=== PATIENT | female | born 1975 | race Hispanic/Latino ===

== ENCOUNTER 2017-09-20 14:23 | Emergency (ER) | payer BC, OTHER ==
--- OUTSIDE RECORDS SUMMARY | 2017-09-20 14:24 | XMS REPORT | Clinical Summary ---
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 Social History Tobacco Use Types Packs/Day Years Used Date Never Assessed Sex Assigned at Date Recorded Not on file Last Filed Vital Signs Not on file Plan of Treatment Not on file Results EEG AWAKE/ASLEEP AND SLEEP (08/06/2017 2:08 PM) Specimen Performing Laboratory GE RIS Narrative Date(s) of EE08/06/2017 DATE OF REPORT: 08/06/2017 ACC: [id number] EEG Number: [id number] Test Location: Outpatient EEG Lab Start time: 13:47 Stop time: 14:17 ICD-10: R 56.9 CPT Code: 22192 MEDICATIONS THAT COULD AFFECT EEG: None in chart TECHNICAL SUMMARY: This is a digital video-EEG recorded with 32 input channels reviewed with bipolar and referential montages using the modified combinatorial system nomenclature. DESCRIPTION OF RECORD: During the maximally alert state a 9 Hz posterior dominant rhythm was seen that was symmetric, reactive to eye opening and well regulated. More anteriorly, low voltage frontocentral beta predominated. Drowsiness was characterized by alpha attenuation and increased frontocentral theta and beta.Stage 2 sleep was reached characterized by symmetric sleep spindles. SIGNIFICANT VIDEO EVENTS: None SIGNIFICANT ELECTROCARDIOGRAM EVENTS: None HV: Hyperventilation was performed for 3 minutes with good effort. No change was seen with HV. PHOTIC STIMULATION: Photic stimulation was done from 3-18 Hz; no photic driving was seen; photoparoxysmal responses were absent. IMPRESSION: Normal Awake and Sleep EEG CLINICAL CORRELATION: An EEG without epileptiform discharges does not exclude the possibility of epilepsy. Ruslan Dickerson MD Neurophysiology Fellow, PGY5 Sharee Ortiz MD Attending Neurophysiologist [facility] Procedure Note Interface, External Ris In - 08/06/2017 3:37 PM CDT Date(s) of EE08/06/2017 DATE OF REPORT: 08/06/2017 ACC: [id number] EEG Number: [id number] Test Location: Outpatient EEG Lab Start time: 13:47 Stop time: 14:17 ICD-10: R 56.9 CPT Code: 26077 MEDICATIONS THAT COULD AFFECT EEG: None in chart TECHNICAL SUMMARY: This is a digital video-EEG recorded with 32 input channels reviewed with bipolar and referential montages using the modified combinatorial system nomenclature. DESCRIPTION OF RECORD: During the maximally alert state a 9 Hz posterior dominant rhythm was seen that was symmetric, reactive to eye opening and well regulated. More anteriorly, low voltage frontocentral beta predominated. Drowsiness was characterized by alpha attenuation and increased frontocentral theta and beta. Stage 2 sleep was reached characterized by symmetric sleep spindles. SIGNIFICANT VIDEO EVENTS: None SIGNIFICANT ELECTROCARDIOGRAM EVENTS: None HV: Hyperventilation was performed for 3 minutes with good effort. No change was seen with HV. PHOTIC STIMULATION: Photic stimulation was done from 3-18 Hz; no photic driving was seen; photoparoxysmal responses were absent. IMPRESSION: Normal Awake and Sleep EEG CLINICAL CORRELATION: An EEG without epileptiform discharges does not exclude the possibility of epilepsy. Ruslan Dickerson MD Neurophysiology Fellow, PGY5 Sharee Ortiz MD Attending Neurophysiologist [facility] after 09/19/2016
--- OUTSIDE RECORDS SUMMARY | 2017-09-20 14:24 | XMS REPORT | Summary of Care ---
:1975 Author Organization [facility] Address [address], [place] [address]- Encounter [facility] Encntr_alias(FIN) [id number] Date(s): 06/28/16 - 06/28/[address] [address]- Discharge Disposition: Home or Self Care Attending Physician: Pamela Bishop MD Admitting Physician: Pamela Bishop MD Vital Signs No data available for this section Problem List No data available for this section Allergies, Adverse Reactions, Alerts No data available for this section Medications No data available for this section Results No data available for this section Immunizations No data available for this section Procedures No data available for this section Social History No data available for this section Assessment and Plan No data available for this section
--- OUTSIDE RECORDS SUMMARY | 2017-09-20 14:25 | XMS REPORT | Summary of Care ---
:1975 Author Organization [facility] Address [address] [place] [address]- Encounter [facility]orn[facility]_bobby(FIN) [id number] Date(s): 06/22/17 - 06/23/17 [facility] [address] [place] [address]- [phone] Discharge Disposition: Psychiatric Facility Attending Physician: Zoey Pineda MD Admitting Physician: Zoey Pineda MD Vital Signs Most recent to oldest [Reference 1 2 3 Range]: Height 180.34 cm 180.34 cm (06/22/17 8:03 PM) (06/22/17 1:00 PM) Temperature Oral [96.4-99.1 DegF] 98.7 DegF 98.9 DegF 97.7 DegF (06/23/17 2:38 PM) (06/23/17 7:49 AM) (06/23/17 1:21 AM) Blood Pressure [90-140/60-90 mmHg] 161/95 mmHg 136/89 mmHg 127/81 mmHg *HI* (06/23/17 7:49 AM) (06/23/17 4:20 AM) (06/23/17 2:38 PM) Respiratory Rate [14-20 BRMIN] 16 BRMIN 18 BRMIN 16 BRMIN (06/23/17 2:38 PM) (06/23/17 7:49 AM) (06/23/17 1:30 AM) Peripheral Pulse Rate [60-100 bpm] 94 bpm 104 bpm 89 bpm (06/23/17 2:38 PM) *HI* (06/23/17 4:20 AM) (06/23/17 7:49 AM) Weight 71.534 kg 77.273 kg (06/22/17 8:03 PM) (06/22/17 1:00 PM) Body Mass Index 22 m2 23.76 m2 (06/22/17 8:03 PM) (06/22/17 1:00 PM) Problem List No data available for this section Allergies, Adverse Reactions, Alerts Substance Reaction Severity Status doxycycline Active Zofran Active Demerol HCl Active Morphine Sulfate ER Active Medications acetaminophen (ANES) 10 mg Route: IV, Drug form: INJ, Start date: 06/22/17 23:35:00 CDT, Stop date: 0:35:00 CDT Start Date: 06/22/17 Stop Date: 06/23/17 Status: CompletedANES diphenhydrAMINE 6.25 mg, Route: IVP, Drug form: INJ, ONCE, Dosing Weight 71.534, kg, PRN Itching , Start date: 06/23/17 0:51:00 CDT Start Date: 06/23/17 Stop Date: 06/23/17 Status: CompletedANES ePHEDrine 5 mg, 1 mL, Route: IVP, Drug form: INJ, Q5Min, Dosing Weight 71.534, kg, PRN Low Blood Pressure, Start date: 06/22/17 23:40:00 CDT, Duration: 30 day, Stop date: 07/22/17 23:39:00 CDT Start Date: 06/22/17 Stop Date: 06/23/17 Status: DiscontinuedANES flumazenil 0.2 mg, 2 mL, Route: IVP, Drug form: INJ, PRN, Dosing Weight 71.534, kg, PRN Benzodiazepine Reversal, Initial dose, Start date: 06/22/17 23:40:00 CDT, Duration: 30 day, Stop date: 07/22/17 23:39:00 CDT Notes: (Same as: Romazicon) Start Date: 06/22/17 Stop Date: 06/23/17 Status: DiscontinuedANES hydrALAZINE 10 mg, 0.5 mL, Route: IVP, Drug form: INJ, Q20Min, Dosing Weight 71.534, kg, PRN Elevated BP, Start date: 06/22/17 23:40:00 CDT, Duration: 2 doses or times, Stop date: Limited # of times Notes: (Same as: Apresoline)Push over 5 minutes Start Date: 06/22/17 Stop Date: 06/23/17 Status: DiscontinuedANES HYDROmorphone 0.5 mg, 0.5 mL, Route: IVP, Drug form: INJ, Q5Min, Dosing Weight 71.534, kg, PRN Pain Score 7-10, Start date: 06/22/17 23:40:00 CDT, Duration: 4 doses or times, Stop date: Limited # of times Notes: Same as: Dilaudid Start Date: 06/22/17 Stop Date: 06/23/17 Status: DiscontinuedANES LORazepam 0.5 mg, 0.25 mL, Route: IVP, Drug form: INJ, Q20Min, Dosing Weight 71.534, kg, PRN Anxiety, Start date: 06/22/17 23:40:00 CDT, Duration: 3 doses or times, Stop date: Limited # of times Notes: (Same as: Ativan) Start Date: 06/22/17 Stop Date: 06/23/17 Status: DiscontinuedANES metoprolol 1 mg, 1 mL, Route: IVP, Drug form: INJ, Q5Min, Dosing Weight 71.534, kg, PRN Other -See Comment, Start date: 06/22/17 23:40:00 CDT, Duration: 5 doses or times, Stop date: Limited # of times Notes: (Same as: Lopressor)Push over 2 minutes Start Date: 06/22/17 Stop Date: 06/23/17 Status: DiscontinuedANES midazolam 1 mg, 1 mL, Route: IVP, Drug form: INJ, Q5Min, Dosing Weight 71.534, kg, PRN Anxiety, Start date: 06/22/17 23:40:00 CDT, Duration: 2 doses or times, Stop date: Limited # of times Notes: (Same as: Versed) MEDICATION WASTE Product Size: 2 mgProduct Wasted: ___ mg Start Date: 06/22/17 Stop Date: 06/23/17 Status: DiscontinuedANES naloxone 0.4 mg, 1 mL, Route: IVP, Drug form: INJ, Q2MIN, Dosing Weight 71.534, kg, PRN Narcotic Reversal, Start date: 06/22/17 23:40:00 CDT, Duration: 8 doses or times , Stop date: Limited # of times Notes: Same as Narcan Start Date: 06/22/17 Stop Date: 06/23/17 Status: DiscontinuedANES promethazine + Sodium Chloride 0.9% IV 50 mL 6.25 mg, 0.25 mL, Route: IVPB, ONCE, Dosing Weight 71.534, kg, PRN Nausea & Vomiting, Start date: 06/22/17 23:40:00 CDT Notes: Do not give IV push. (Same as: Phenergan) Start Date: 06/22/17 Stop Date: 06/23/17 Status: DiscontinuedAtivan 1 mg, 0.5 mL, Route: IVP, Drug form: INJ, Q4H, Dosing Weight 71.534, kg, PRN Anxiety, Start date: 06/22/17 22:23:00 CDT, Duration: 30 day, Stop date: 22:22:00 CDT Notes: (Same as: Ativan) Start Date: 06/22/17 Stop Date: 06/23/17 Status: Discontinuedbaclofen 20 mg, PO, QID, 0 Refill(s) Start Date: 06/22/17 Status: Orderedbaclofen 20 mg, 2 tab, Route: PO, Drug form: TAB, QID, Dosing Weight 71.534, kg, Start date: 06/23/17 9:00:00CDT, Duration: 30 day, Stop date: 07/22/17 21:00:00 CDT Notes: (Same As: Lioresal) Start Date: 06/23/17 Stop Date: 06/23/17 Status: DiscontinuedBD Normal Saline Flush 25 mL, Route: IV, Drug Form: INJ, PRN, PRN Line Flush, Start date: 06/22/17 22: 38:00 CDT, Duration: 30 day, Stop date: 07/22/17 22:37:00 CDT Notes: (Same as: BD Posiflush) Start Date: 06/22/17 Stop Date: 06/23/17 Status: DiscontinuedceFAZolin (ANES) Route: IV, Drug form: INJ, ONCE, Stop date: 06/23/17 0:07:00 CDT Start Date: 06/23/17 Stop Date: 06/23/17 Status: Completedcetirizine 10 mg, 1 tab, Route: PO, Drug form: TAB, Daily, PRN Congestion, Start date: 09/03 11:28:00 CDT, Duration: 30 day, Stop date: 07/23/17 11:27:00 CDT Notes: (Same As: Zyrtec) Start Date: 06/23/17 Stop Date: 06/23/17 Status: Discontinuedcetirizine 10 mg oral tablet 10 mg=1 tab, PO, Daily, PRN Congestion, 0 Refill(s) Start Date: 06/23/17 Status: Orderedciprofloxacin 500 mg, 1 tab, Route: PO, Drug form: TAB, Q12H, Dosing Weight 71.534, kg, Priority: NOW, Start date:06/23/17 10:39:00 CDT, Duration: 30 day, Stop date: 9:00:00 CDT, ABX Indication: Intra-abdominal Infection Notes: May interfere w/enteral feedings - Take 1 hr before or 2 hrs after antacids, dairy pdt & minerals. On empty stomach. Start Date: 06/23/17 Stop Date: 06/23/17 Status: Discontinuedciprofloxacin 500 mg oral tablet 500 mg=1 tab, PO, Q12H, X 7 day, # 14 tab, 0 Refill(s) Start Date: 06/23/17 Stop Date: 06/30/17 Status: Orderedciprofloxacin 500 mg oral tablet 500 mg=1 tab, PO, Q12H, X 7 day, # 14 tab, 0 Refill(s) Start Date: 06/22/17 Stop Date: 06/23/17 Status: DiscontinuedClaritin-D 24 Hour oral tablet, extended release 1 tab, Route: PO, Drug Form: ERTAB, Dosing Weight 71.534, kg, Daily, PRN Congestion, NOW, Start date: 06/23/17 10:40:00 CDT, Duration: 30 day, Stop date : 07/23/17 10:39:00 CDT Start Date: 06/23/17 Stop Date: 06/23/17 Status: DeletedclonazePAM 1 mg, PO, TID, 0 Refill(s) Start Date: 06/22/17 Status: OrderedclonazePAM 1 mg, 2 tab, Route: PO, Drug form: TAB, TID, Dosing Weight 71.534, kg, Start date: 06/23/17 9:00:00 CDT, Duration: 30 day, Stop date: 07/23/17 8:00:00 CDT Notes: (Same As: KlonoPIN) Start Date: 06/23/17 Stop Date: 06/23/17 Status: Discontinueddexamethasone (ANES) Route: IV, Drug form: INJ, ONCE, Stop date: 06/23/17 0:12:00 CDT Start Date: 06/23/17 Stop Date: 06/23/17 Status: CompletedDilaudid 1 mg, 1 mL, Route: IVP, Drug form: INJ, Q4H, Dosing Weight 77.273, kg, PRN Pain Score 7-10, Start date: 06/22/17 18:32:00 CDT, Stop date: 07/22/17 18:31:00 CDT Notes: Same as: Dilaudid Start Date: 06/22/17 Stop Date: 06/23/17 Status: DiscontinuedDilaudid 4 mg, 1 tab, Route: PO, Drug form: TAB, Q4H, Dosing Weight 71.534, kg, PRN Pain Score 7-10, Start date: 06/23/17 12:38:00 CDT, Duration: 30 day, Stop date: 08/04 12:37:00 CDT Notes: (Same as: Dilaudid) Start Date: 06/23/17 Stop Date: 06/23/17 Status: DiscontinuedfentaNYL (ANES) Route: IV, Drug form: INJ, ONCE, Stop date: 06/23/17 0:07:00 CDT Start Date: 06/23/17 Stop Date: 06/23/17 Status: CompletedGI cocktail 30 mL, Route: PO, Drug Form: SUSP, Dosing Weight 77.273, kg, ONCE, STAT, Start date: 06/22/17 14:29:00 CDT, Stop date: 06/22/17 14:29:00 CDT Notes: G.I. Cocktail=antacid with simethicone 22.5 mL - lidocaine viscous 7.5 mL Start Date: 06/22/17 Stop Date: 06/22/17 Status: Completedglycopyrrolate (ANES) Route: IV, Drug form: INJ, ONCE, Stop date: 06/23/17 0:43:00 CDT Start Date: 06/23/17 Stop Date: 06/23/17 Status: Completedhydromorphone 0.5 mg, 0.25 mL, Route: IVP, Drug form: INJ, ONCE, Dosing Weight 77.273, kg, Priority: STAT, Start date: 06/22/17 14:13:00 CDT, Stop date: 06/22/17 14:13:00 CDT Notes: Same as Dilaudid Start Date: 06/22/17 Stop Date: 06/22/17 Status: Completedhydromorphone 0.5 mg, 0.25 mL, Route: IVP, Drug form: INJ, ONCE, Dosing Weight 77.273, kg, Priority: STAT, Start date: 06/22/17 17:23:00 CDT, Stop date: 06/22/17 17:23:00 CDT Notes: Same as Dilaudid Start Date: 06/22/17 Stop Date: 06/22/17 Status: Completedhydromorphone (ANES) Route: IV, Drug form: INJ, ONCE, Stop date: 06/23/17 0:07:00 CDT Start Date: 06/23/17 Stop Date: 06/23/17 Status: CompletedhydrOXYzine 25 mg, 1 tab, Route: PO, Drug form: TAB, QID, Dosing Weight 71.534, kg, Start date: 06/23/17 9:00:00CDT, Duration: 30 day, Stop date: 07/22/17 21:00:00 CDT Notes: (Same as: Atarax) Avoid alcohol. Start Date: 06/23/17 Stop Date: 06/23/17 Status: DiscontinuedhydrOXYzine 25 mg, PO, QID, 0 Refill(s) Start Date: 06/22/17 Status: Orderedibuprofen 800 mg, PO, TID, 0 Refill(s) Start Date: 06/22/17 Stop Date: 06/23/17 Status: DiscontinuedImitrex 10 mg, Route: NASAL, Drug form: SPRY, Q2H, Dosing Weight 71.534, kg, PRN Headache 4-6, Start date: 06/23/17 11:47:00 CDT, Duration: 30 day, Stop date: 11:46:00 CDT Start Date: 06/23/17 Stop Date: 06/23/17 Status: DiscontinuedketOROLAC (ANES) IV, ONCE Start Date: 06/23/17 Stop Date: 06/23/17 Status: CompletedLactated Ringers Injection IV (ANES) 1000 mL Route: IV, Total Volume: 1,000, Start date: 06/22/17 23:16:00 CDT, Stop date: 0:16:00 CDT Start Date: 06/22/17 Stop Date: 06/23/17 Status: Completedlidocaine (ANES) Route: IV, Drug form: INJ, ONCE, Stop date: 06/23/17 0:07:00 CDT Start Date: 06/23/17 Stop Date: 06/23/17 Status: Completedmagnesium citrate 1.745 g/30 mL oral liquid 300 ml, Route: PO, Drug Form: LIQ, Dosing Weight 71.534, kg, ONCE, Start date: 06/23/17 10:39:00 CDT, Stop date: 06/23/17 10:39:00 CDT Notes: (Same as: Citrate of Magnesia)Concentration: 1.745 gm / 30 mL Start Date: 06/23/17 Stop Date: 06/23/17 Status: Completedmethocarbamol 750 mg, PO, BID, 0 Refill(s) Start Date: 06/22/17 Status: Orderedmethocarbamol 750 mg, Route: PO, BID, Dosing Weight 71.534, kg, Start date: 06/23/17 9:00:00 CDT, Duration: 30 day, Stop date: 07/22/17 17:00:00 CDT Start Date: 06/23/17 Stop Date: 06/23/17 Status: Discontinuedmidazolam (ANES) Route: IV, Drug form: SOLN, ONCE, Stop date: 06/23/17 0:07:00 CDT Start Date: 06/23/17 Stop Date: 06/23/17 Status: CompletedMiraLax 17 gm, 1 pkt, Route: PO, Drug form: PWDR, BID, Dosing Weight 71.534, kg, Priority: NOW, Start date: 06/23/17 10:39:00 CDT, Duration: 30 day, Stop date: 07/23/17 9:00:00 CDT Notes: Dissolve in 8 oz of water or juice.(Same as: Miralax) Start Date: 06/23/17 Stop Date: 06/23/17 Status: Discontinuedneostigmine (ANES) Route: IV, Drug form: INJ, ONCE, Stop date: 06/23/17 0:43:00 CDT Start Date: 06/23/17 Stop Date: 06/23/17 Status: CompletedPhenergan 25 mg, PO, TID, 0 Refill(s) Start Date: 06/22/17 Status: OrderedPhenergan + Sodium Chloride 0.9% IV 50 mL 12.5 mg, 0.5 mL, Route: IVPB, Q4H, Dosing Weight 71.534, kg, PRN Nausea & Vomiting, Start date: 06/22/17 20:58:00 CDT, Duration: 30 day, Stop date: 20:57:00 CDT Notes: Do not give IV push. (Same as: Phenergan) Start Date: 06/22/17 Stop Date: 06/23/17 Status: DiscontinuedPhenergan + Sodium Chloride 0.9% IV 50 mL 25 mg, 1 mL, Route: IVPB, Drug form: INJ, ONCE, kg, Priority: STAT, Start date: 06/22/17 12:59:00 CDT, Stop date: 06/22/17 12:59:00 CDT Notes: Do not give IV push. (Same as: Phenergan) Start Date: 06/22/17 Stop Date: 06/22/17 Status: CompletedPhenergan + Sodium Chloride 0.9% IV 50 mL 12.5 mg, 0.5 mL, Route: IV Central, Q4H, Dosing Weight 71.534, kg, PRN Nausea & amp; Vomiting, Start date: 06/23/17 0:38:00 CDT, Duration: 30 day, Stop date: 0:37:00 CDT Start Date: 06/23/17 Stop Date: 06/23/17 Status: Discontinuedpropofol (ANES) Route: IV, Drug form: INJ, ONCE, Stop date: 06/23/17 0:07:00 CDT Start Date: 06/23/17 Stop Date: 06/23/17 Status: CompletedProtonix 40 mg, Route: IVP, Drug form: INJ, ONCE, Dosing Weight 77.273, kg, Priority: STAT, Start date: 06/22/17 14:47:00 CDT, Stop date: 06/22/17 14:47:00 CDT Notes: For IV push reconstitute with 10 ml 0.9% sodium chloride and push over 2 minutes. (Same as: Protonix) Start Date: 06/22/17 Stop Date: 06/22/17 Status: CompletedReglan 10 mg, Route: IVP, Drug form: INJ, Q6H, Dosing Weight 77.273, kg, PRN Nausea & amp; Vomiting, Start date: 06/22/17 18:32:00 CDT, Duration: 30 day, Stop date: 07/22/17 18:31:00 CDT Start Date: 06/22/17 Stop Date: 06/22/17 Status: Deletedrocuronium (ANES) Route: IV, Drug form: INJ, ONCE, Stop date: 06/23/17 0:07:00 CDT Start Date: 06/23/17 Stop Date: 06/23/17 Status: CompletedSaline Flush 0.9% 10 ml, Route: IVP, Drug Form: INJ, Dosing Weight 77.273, kg, PRN, PRN Line Flush , Start date: 06/22/17 18:30:00 CDT, Duration: 30 day, Stop date: 07/22/17 18:29 :00 CDT Notes: (Same as: BD Posiflush) Start Date: 06/22/17 Stop Date: 06/23/17 Status: DiscontinuedSodium Chloride 0.9% (Bolus) IV 1,000 mL, 1000 ml/hr, Infuse Over: 1 hr, Route: IV, 1,000, Drug form: INJ, ONCE , Priority: STAT, kg,Start date: 06/22/17 12:59:00 CDT, Stop date: 06/22/17 12: 59:00 CDT Start Date: 06/22/17 Stop Date: 06/22/17 Status: CompletedSodium Chloride 0.9% IV 1,000 mL 1,000 mL, Rate: 125 ml/hr, Infuse over: 8 hr, Route: IV, Dosing Weight 77.273 kg , Total Volume: 1,000, Start date: 06/22/17 18:30:00 CDT, Duration: 30 day, Stop date: 07/22/17 18:29:00 CDT, 1.98, m2 Start Date: 06/22/17 Stop Date: 06/23/17 Status: Discontinuedsuccinylcholine (ANES) Route: IV, Drug form: INJ, ONCE, Stop date: 06/23/17 0:07:00 CDT Start Date: 06/23/17 Stop Date: 06/23/17 Status: CompletedSudafed 60 mg, 1 tab, Route: PO, Drug form: TAB, Q6H, PRN Congestion, Start date: 11:30:00 CDT, Duration: 30 day, Stop date: 07/23/17 11:29:00 CDT Notes: (Same as: Mo) Start Date: 06/23/17 Stop Date: 06/23/17 Status: Discontinuedtramadol 50 mg, PO, Q8H Start Date: 06/22/17 Status: OrderedTylenol with Codeine #3 oral tablet 1 tab=, PO, Q4H, PRN Pain Score 4-6, # 40 tab, 0 Refill(s) Start Date: 06/22/17 Stop Date: 06/23/17 Status: DiscontinuedTylenol with Codeine #3 oral tablet 1 tab=, PO, Q4H, PRN Pain Score 4-6, # 40 tab, 0 Refill(s) Start Date: 06/23/17 Status: OrderedTylenol with Codeine #3 oral tablet 1 tab, Route: PO, Drug Form: TAB, Dosing Weight 71.534, kg, Q4H, PRN Pain Score 4-6, Start date: 06/23/17 0:38:00 CDT, Duration: 30 day, Stop date: 07/23/17 0: 37:00 CDT Start Date: 06/23/17 Stop Date: 06/23/17 Status: DiscontinuedZyPREXA 10 mg, 2 tab, Route: PO, Drug form: TAB, Bedtime, Dosing Weight 71.534, kg, Start date: 06/23/17 21:00:00 CDT, Duration: 30 day, Stop date: 07/22/17 21:00: 00 CDT Notes: (Same as: ZyPREXA) Start Date: 06/23/17 Stop Date: 06/23/17 Status: CanceledZyPREXA 10 mg, PO, Bedtime, 0 Refill(s) Start Date: 06/22/17 Status: Ordered Results ELECTROLYTES Most recent to oldest [Reference Range]: 1 2 Sodium Lvl [135-145 mEq/L] 138 mEq/L 140 mEq/L (06/23/17 4:27 AM) (06/22/17 1:20 PM) Potassium Lvl [3.5-5.1 mEq/L] 4.1 mEq/L 4.0 mEq/L (06/23/17 4:27 AM) (06/22/17 1:20 PM) Chloride Lvl [95-109 mEq/L] 105 mEq/L 106 mEq/L (06/23/17 4:27 AM) (06/22/17 1:20 PM) CO2 [24-32 mEq/L] 26 mEq/L 26 mEq/L (06/23/17 4:27 AM) (06/22/17 1:20 PM) AGAP [10.0-20.0 mEq/L] 11.1 mEq/L 12.0 mEq/L (06/23/17 4:27 AM) (06/22/17 1:20 PM) CHEM PANEL Most recent to oldest [Reference Range]: 1 2 Creatinine Lvl [0.50-1.40 mg/dL] 0.96 mg/dL 0.96 mg/dL (06/23/17 4:27 AM) (06/22/17 1:20 PM) eGFR 73 mL/min/1.73m2 1 73 mL/min/1.73m2 2 *NA* *NA* (06/23/17 4:27 AM) (06/22/17 1:20 PM) BUN [7-22 mg/dL] 10 mg/dL 14 mg/dL (06/23/17 4:27 AM) (06/22/17 1:20 PM) B/C Ratio [6-25] 10 15 (06/23/17 4:27 AM) (06/22/17 1:20 PM) Glucose Lvl [70-99 mg/dL] 148 mg/dL 119 mg/dL *HI* *HI* (06/23/17 4:27 AM) (06/22/17 1:20 PM) Total Protein [6.4-8.4 g/dL] 6.4 g/dL 7.2 g/dL (06/23/17 4:27 AM) (06/22/17 1:20 PM) Albumin Lvl [3.5-5.0 g/dL] 3.0 g/dL 3.5 g/dL *LOW* (06/22/17 1:20 PM) (06/23/17 4:27 AM) Globulin [2.7-4.2 g/dL] 3.4 g/dL 3.7 g/dL (06/23/17 4:27 AM) (06/22/17 1:20 PM) A/G Ratio [0.7-1.6] 0.9 0.9 (06/23/17 4:27 AM) (06/22/17 1:20 PM) Calcium Lvl [8.5-10.5 mg/dL] 8.5 mg/dL 8.5 mg/dL (06/23/17 4:27 AM) (06/22/17 1:20 PM) Magnesium Lvl [1.8-2.4 mg/dL] 2.1 mg/dL (06/23/17 4:27 AM) ALT [0-65 unit/L] 279 unit/L 104 unit/L *HI* *HI* (06/23/17 4:27 AM) (06/22/17 1:20 PM) AST [0-37 unit/L] 179 unit/L 104 unit/L *HI* *HI* (06/23/17 4:27 AM) (06/22/17 1:20 PM) Alk Phos [39-136 unit/L] 99 unit/L 80 unit/L (06/23/17 4:27 AM) (06/22/17 1:20 PM) Bili Total [0.2-1.3 mg/dL] 0.4 mg/dL 0.6 mg/dL (06/23/17 4:27 AM) (06/22/17 1:20 PM) Bili Direct [0.0-0.3 mg/dL] 0.1 mg/dL (06/23/17 4:27 AM) Lipase Lvl [73-393 unit/L] 168 unit/L (06/22/17 1:20 PM) 1Result Comment: The eGFR is calculated using the CKD-EPI formula. In most young , healthy individualsthe eGFR will be >90 mL/min/1.73m2. The eGFR declines with age. An eGFR of 60-89 may be normal insome populations, particularly the elderly, for whom the CKD-EPI formula has not been extensively validated. Use of the eGFR is not recommended in the following populations: Individuals with unstable creatinine concentrations, including patients and those with serious co-morbid conditions. Patients with extremes in muscle mass or diet. The data above are obtained from the National Kid[employer] Disease Education Program ( [employer]) which additionally recommends that when the eGFR is used in patients with extremes of body mass index for purposesof drug dosing, the eGFR should be multiplied by the estimated BMI.2Result Comment: The eGFR is calculated using the CKD-EPI formula. In most young, healthy individualsthe eGFR will be >90 mL/min/1.73m2. The eGFR declines with age. An eGFR of 60-89 may be normal insome populations, particularly the elderly, for whom the CKD-EPI formula has not been extensively validated. Use of the eGFR is not recommended in the following populations: Individuals with unstable creatinine concentrations, including patients and those with serious co-morbid conditions. Patients with extremes in muscle mass or diet. The data above are obtained from the National Kid[employer] Disease Education Program ( [employer]) which additionally recommends that when the eGFR is used in patients with extremes of body mass index for purposesof drug dosing, the eGFR should be multiplied by the estimated BMI.CARDIAC ENZYMES Most recent to oldest [Reference Range]: 1 2 Troponin-I [0.00-0.40 ng/mL] <0.02 ng/mL (06/22/17 1:20 PM) ENDOCRINOLOGY Most recent to oldest [Reference Range]: 1 2 S Preg [Negative] Negative *NA* (06/22/17 1:20 PM) HEMATOLOGY Most recent to oldest [Reference Range]: 1 2 WBC [3.7-10.4 K/CMM] 5.9 K/CMM 10.3 K/CMM (06/23/17 4:27 AM) (06/22/17 1:20 PM) RBC [4.20-5.40 M/CMM] 3.89 M/CMM 4.33 M/CMM *LOW* (06/22/17 1:20 PM) (06/23/17 4:27 AM) Hgb [12.0-16.0 g/dL] 11.7 g/dL 12.8 g/dL *LOW* (06/22/17 1:20 PM) (06/23/17 4:27 AM) Hct [36.0-48.0 %] 34.2 % 37.6 % *LOW* (06/22/17 1:20 PM) (06/23/17 4:27 AM) MCV [80.0-98.0 fL] 87.9 fL 86.9 fL (06/23/17 4:27 AM) (06/22/17 1:20 PM) MCH [27.0-31.0 pg] 30.0 pg 29.7 pg (06/23/17 4:27 AM) (06/22/17 1:20 PM) MCHC [32.0-36.0 g/dL] 34.2 g/dL 34.2 g/dL (06/23/17 4:27 AM) (06/22/17 1:20 PM) RDW [11.5-14.5 %] 14.4 % 14.4 % (06/23/17:27 AM) (06/22/17 1:20 PM) MPV [7.4-10.4 fL] 8.4 fL 8.3 fL (06/23/17 4:27 AM) (06/22/17 1:20 PM) Platelet [133-450 K/CMM] 178 K/CMM 227 K/CMM (06/23/17:27 AM) (06/22/17 1:20 PM) Segs [45.0-75.0 %] 90.1 % 85.3 % *HI* *HI* (06/23/17 4:27 AM) (06/22/17 1:20 PM) Lymphocytes [20.0-40.0 %] 7.5 % 9.3 % *LOW* *LOW* (06/23/17 4:27 AM) (06/22/17 1:20 PM) Monocytes [2.0-12.0 %] 2.0 % 4.4 % (06/23/17 4:27 AM) (06/22/17 1:20 PM) Eosinophils [0.0-4.0 %] 0.1 % 0.3 % (06/23/17 4:27 AM) (06/22/17 1:20 PM) Basophils [0.0-1.0 %] 0.3 % 0.7 % (06/23/17 4:27 AM) (06/22/17 1:20 PM) Segs-Bands # [1.5-8.1 K/CMM] 5.3 K/CMM 8.8 K/CMM (06/23/17 4:27 AM) *HI* (06/22/17 1:20 PM) Lymphocytes # [1.0-5.5 K/CMM] 0.4 K/CMM 1.0 K/CMM *LOW* (06/22/17 1:20 PM) (06/23/17 4:27 AM) Monocytes # [0.0-0.8 K/CMM] 0.1 K/CMM 0.5 K/CMM (06/23/17 4:27 AM) (06/22/17 1:20 PM) Basophils # [0.0-0.2 K/CMM] 0.1 K/CMM (06/22/17 1:20 PM) Immunizations No data available for this section Procedures Procedure Date Related Diagnosis Body Site Status Back fusion Completed Removal of ovarian cyst Completed Social History Social History Type Response Smoking Status Current every day smoker; Type: Cigarettes; Exposure to Tobacco Smoke None; Cigarette Smoking Last 365 Days No; Reg Smoking Cessation Counseling No; Tobacco use per day: 3; Number of years: 24; 1 entered on: 06/22/17 1Patient "vapes" but states she currently cannot use her vape cigarettes at [place] so has begun smoking cigarettes again. Assessment and Plan No data available for this section
--- OUTSIDE RECORDS SUMMARY | 2017-09-20 14:25 | XMS REPORT ---
:1975 [facility] Address [address] [place] [address] [address] [place] [address] Care Team Providers Name Role Phone Unavailable Unavailable Unavailable Problems This patient has no known problems. Allergies, Adverse Reactions, Alerts This patient has no known allergies or adverse reactions. Medications This patient has no known medications. Results Test Description Test Time Test Comments Text Results Atomic Results Result Comments EEG AWAKE/ASLEEP AND SLEEP 2017-08-06 15:37:00 Date(s) of EE2017DATE OF REPORT: 08/06/2017ACC: [id number] Number: [id number] Location: Outpatient EEG LabStart time: 13:47Stop time: 14:17ICD-10: R 56.9CPT Code: 23071 MEDICATIONS THAT COULD AFFECT EEG: None in [...] exclude the possibility of epilepsy. Ruslan Dickerson MDNeurophysiology Fellow, PGY5 Harjeet Taylorending NeurophysiologistJohn Peter [facility] Hospital
[2017-09-20] MEDS ORDERED: FLUORESCEIN SODIUM 0.6 MG/WRAP ONE (15:13)
--- NOTE | 2017-09-20 15:18 | EDPHYS ---
Physician Documentation [facility] Name: Sommer Briones Age: 41 yrs Sex: Female : 1975 Arrival Date: 09/20/2017 Time: 14:29 Bed 10 Private MD: None, None ED Physician Jer Kilgore HPI: 09/20 15:25 This 41 yrs old Female presents to ER via Ambulatory with complaints of snw Foreign Body In Eye. 15:25 The patient is experiencing foreign body sensation, pain, redness, The patient snw sustained an abrasion, a scratch, Unknown. to the right eye, caused by an unknown mechanism. Onset: The symptoms/episode began/occurred suddenly, this morning. Duration: the symptoms are continuous. Aggravated by blinking, light, rubbing, Alleviated by numbing drops. Associated signs and symptoms: Pertinent positives: None. Patient has had LASIK surgery. Severity of symptoms: At their worst the symptoms were mild. It is unknown whether or not the patient has had similar symptoms in the past. It is unknown whether or not the patient has recently seen a physician. 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 aj1 Historical: - Allergies: 14:51 morphine; aj1 14:51 Demerol; aj1 14:51 Zofran; aj1 14:51 doxycycline monohydrate; aj1 - Home Meds: 14:51 Klonopin 1 mg Oral tab 1 tab four times a d ay [Active]; tramadol 50 mg Oral tab 1 tab aj1 every 4 hours [Active]; baclofen 20 mg Oral tab 1 tab 5 times per day [Active]; methocarbamol 750 mg Oral tab 2 tabs twice daily [Active]; Zyprexa 15 mg Oral tab 1 tab once daily [Active]; nortriptyline 50 mg Oral cap 1 cap 2 times per day [Active]; prazosin 4mg Oral cap 1 cap at bedtime [Active]; Phenergan Oral 25 mg as needed [Active]; - PMHx: 14:51 neuropathy; Arthritis; ovarian cysts; aj1 - PSHx: 14:51 back surgery; spinal fusion L3 to S1; bilateral leg surgery; Cholecystectomy; aj1 - Immunization history:: Flu vaccine is up to date. - Social history:: Smoking status: Patient/guardian denies using tobacco. - Ebola Screening: : Patient denies travel to an Ebola-affected area in the 21 days before illness onset. ROS: 15:20 Constitutional: Negative for fever, chills, and weight loss, ENT: Negative for injury, snw pain, and discharge, Neck: Negative for injury, pain, and swelling, Cardiovascular: Negative for chest pain, palpitations, and edema, Respiratory: Negative for shortness of breath, cough, wheezing, and pleuritic chest pain, Abdomen/GI: Negative for abdominal pain, nausea, vomiting, diarrhea, and constipation, Back: Negative for injury and pain, : Negative for injury, bleeding, discharge, and swelling, MS/Extremity: Negative for injury and deformity, Skin: Negative for injury, rash, and discoloration, Neuro: Negative for headache, weakness, numbness, tingling, and seizure. 15:20 Eyes: Positive for foreign body sensation, pain, visual disturbance. Exam: 15:19 Constitutional: This is a well developed, well nourished patient who is awake, alert, snw and in no acute distress. Head/Face: Normocephalic, atraumatic. ENT: Nares patent. No nasal discharge, no septal abnormalities noted. Tympanic membranes are normal and external auditory canals are clear. Oropharynx with no redness, swelling, or masses, exudates, or evidence of obstruction, uvula midline. Mucous membranes moist. Neck: Trachea midline, no thyromegaly or masses palpated, and no cervical lymphadenopathy. Supple, full range of motion without nuchal rigidity, or vertebral point tenderness. No Meningismus. Chest/axilla: Normal chest wall appearance and motion. Nontender with no deformity. No lesions are appreciated. Cardiovascular: Regular rate and rhythm with a normal S1 and S2. No gallops, murmurs, or rubs. Normal PMI, no JVD. No pulse deficits. Respiratory: Lungs have equal breath sounds bilaterally, clear to auscultation and percussion. No rales, rhonchi or wheezes noted. No increased work of breathing, no retractions or nasal flaring. Abdomen/GI: Soft, non-tender, with normal bowel sounds. No distension or tympany. No guarding or rebound. No evidence of tenderness throughout. Back: No spinal tenderness. No costovertebral tenderness. Full range of motion. Skin: Warm, dry with normal turgor. Normal color with no rashes, no lesions, and no evidence of cellulitis. MS/ Extremity: Pulses equal, no cyanosis. Neurovascular intact. Full, normal range of motion. Neuro: Awake and alert, GCS 15, oriented to person, place, time, and situation. Cranial nerves II-XII grossly intact. Motor strength 5/5 in all extremities. Sensory grossly intact. Cerebellar exam normal. Normal gait. Psych: Awake, alert, with orientation to person, place and time. Behavior, mood, and affect are within normal limits. 15:19 Eyes: Periorbital structures: appear normal, Pupils: no acute changes, Extraocular movements: no acute changes, Conjunctiva: injected, in the right eye. Vital Signs: 14:51 BP 103 / 73; Pulse 88; Resp 18; Temp 98.6(O); Pulse Ox 96% on R/A; Weight 72.57 kg (R); aj1 Height 5 ft. 11 in. (180.34 cm) (R); Pain 9/10; 14:51 Body Mass Index 22.32 (72.57 kg, 180.34 cm) aj1 Visual Acuity: 15:23 Left Eye Visual acuity 20/20, ; Right Eye Visual acuity 20/20, ; Without Lenses; iw MDM: 14:53 Patient medically screened. kelly 15:24 Data reviewed: vital signs, nurses notes. Data interpreted: Pulse oximetry: on room air snw is 96 %. Interpretation: acceptable. Counseling: I had a detailed discussion with the patient and/or guardian regarding: the historical points, exam findings, and any diagnostic results supporting the discharge/admit diagnosis, the need for outpatient follow up, for definitive care, to return to the emergency department if symptoms worsen or persist or if there are any questions or concerns that arise at home. Special discussion: Based on the history and exam findings, there is no indication for further emergent testing or inpatient evaluation. I discussed with the patient/guardian the need to see the orthopedic surgeon for further evaluation of the symptoms. 09/20 14:54 Order name: Visual Acuity; Complete Time: 15:58 snw 09/20 14:54 Order name: Eye Tray; Complete Time: 15:57 snw 09/20 14:54 Order name: Fluoresene Opth strip; Complete Time: 15:10 snw Administered Medications: 15:16 CANCELLED (Pt using at home): Tetracaine Drops 0.5 % 1 drops Ophthalmic once snw 15:16 CANCELLED (pt UTD): Tetanus-Diphtheria Toxoid Adult 0.5 ml IM once snw 15:23 Drug: ToBREx Drops (0.3 %) 2 drops Route: Ophthalmic; Site: right eye; iw Disposition: 09/20/17 15:17 Discharged to Home. Impression: Injury of conjunctiva and corneal abrasion without foreign body. - Condition is Stable. - Discharge Instructions: Corneal Abrasion. - Prescriptions for Vigamox 0.5 % Ophthalmic Drops - instill 1 drop by OPHTHALMIC route every 8 hours for 7 days; 5 milliliter. Diclofenac Sodium 75 mg Oral Tablet Sustained Release - take 1 tablet by ORAL route 2 times per day; 30 tablet. - Medication Reconciliation Form, Thank You Letter, Antibiotic Education, Prescription Opioid Use form. - Follow up: Angela Harp MD; When: 48 Hours; Reason: Recheck today's complaints, Continuance of care, Re-evaluation by your physician. - Notes: Stop numbing eye drops Addendum: 09/22/2017 13:59 Co-signature as Attending Physician, Jer Kilgore MD I agree with the assessment and c mckeon plan of care. Signatures: Kristi Cardenas RN RN aj1 Jer Kilgore MD MD cha Therrien, Shelly, COLLECTIONS PROFESSIONAL-C COLLECTIONS PROFESSIONAL-Csnw Shahnaz Pelayo RN RN iw Corrections: (The following items were deleted from the chart) 09/20 15:16 14:54 Tetracaine Drops 0.5 % 1 drops Ophthalmic once ordered. snw snw 15:16 14:55 Tetanus-Diphtheria Toxoid Adult 0.5 ml IM once ordered. snw snw 15:29 15:17 09/20/2017 15:17 Discharged to Home. Impression: Injury of conjunctiva and iw corneal abrasion without foreign body. Condition is Stable. Forms are Medication Reconciliation Form, Thank You Letter, Antibiotic Education, Prescription Opioid Use. Follow up: Angela Harp; When: 48 Hours; Reason: Recheck today's complaints, Continuance of care, Re-evaluation by your physician. snw
--- NOTE | 2017-09-20 15:18 | ER ---
Nurse's Notes [facility] Name: Sommer Briones Age: 41 yrs Sex: Female : 1975 Arrival Date: 09/20/2017 Time: 14:29 Bed 10 Private MD: None, None Diagnosis: Injury of conjunctiva and corneal abrasion without foreign body Presentation: 09/20 14:43 Presenting complaint: Patient states: She woke up and her right eye felt irritated, and aj1 she was having a hard time keeping it open. States that she has numbing drops at home so she has been using those. Redness noted to right eye. Reports blurred vision, but states she thinks that's from the numbing drops because she did not have blurred vision before she started using them. Transition of care: patient was not received from another setting of care. Onset of symptoms was September 20, 2017. Risk Assessment: Do you want to hurt yourself or someone else? Patient reports no desire to harm self or others. Initial Sepsis Screen: Does the patient meet any 2 criteria? No. Patient's initial sepsis screen is negative. Does the patient have a suspected source of infection? No. Patient's initial sepsis screen is negative. Care prior to arrival: None. 14:43 Method Of Arrival: Ambulatory aj1 14:43 Acuity: KIMI 4 aj1 Triage Assessment: 14:51 General: Appears in no apparent distress. comfortable, Behavior is calm, cooperative, aj1 appropriate for age. Pain: Complains of pain in right eye Pain currently is 9 out of 10 on a pain scale. EENT: Sclera/Cornea are reddened in outer aspect of conjuctiva of right eye, iris of right eye and inner aspect of conjuctiva of right eye. Neuro: Level of Consciousness is awake, alert, obeys commands. Cardiovascular: Patient's skin is warm and dry. Respiratory: Airway is patent Respiratory effort is even, unlabored, Respiratory pattern is regular, symmetrical. 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 aj1 Historical: - Allergies: 14:51 morphine; aj1 14:51 Demerol; aj1 14:51 Zofran; aj1 14:51 doxycycline monohydrate; aj1 - Home Meds: 14:51 Klonopin 1 mg Oral tab 1 tab four times a d ay [Active]; tramadol 50 mg Oral tab 1 tab aj1 every 4 hours [Active]; baclofen 20 mg Oral tab 1 tab 5 times per day [Active]; methocarbamol 750 mg Oral tab 2 tabs twice daily [Active]; Zyprexa 15 mg Oral tab 1 tab once daily [Active]; nortriptyline 50 mg Oral cap 1 cap 2 times per day [Active]; prazosin 4mg Oral cap 1 cap at bedtime [Active]; Phenergan Oral 25 mg as needed [Active]; - PMHx: 14:51 neuropathy; Arthritis; ovarian cysts; aj1 - PSHx: 14:51 back surgery; spinal fusion L3 to S1; bilateral leg surgery; Cholecystectomy; aj1 - Immunization history:: Flu vaccine is up to date. - Social history:: Smoking status: Patient/guardian denies using tobacco. - Ebola Screening: : Patient denies travel to an Ebola-affected area in the 21 days before illness onset. Screenin:00 Abuse screen: Denies threats or abuse. Denies injuries from another. Nutritional iw screening: No deficits noted. Tuberculosis screening: No symptoms or risk factors identified. Fall Risk None identified. Assessment: 15:00 General: Appears in no apparent distress. comfortable. Pain: Complains of pain in right iw eye. Neuro: Level of Consciousness is awake, alert, obeys commands, Oriented to person, place, time, situation, Moves all extremities. Full function. Cardiovascular: Patient's skin is warm and dry. Respiratory: Respiratory effort is even, unlabored. EENT: Eyes are tearing on outer aspect of conjuctiva of right eye and inner aspect of conjuctiva of right eye Sclera/Cornea are reddened in outer aspect of conjuctiva of right eye. Derm: Skin is pink, warm \T\ dry. normal. Musculoskeletal: Range of motion: intact in all extremities. Vital Signs: 14:51 BP 103 / 73; Pulse 88; Resp 18; Temp 98.6(O); Pulse Ox 96% on R/A; Weight 72.57 kg (R); aj1 Height 5 ft. 11 in. (180.34 cm) (R); Pain 9/10; 14:51 Body Mass Index 22.32 (72.57 kg, 180.34 cm) aj1 Visual Acuity: 15:23 Left Eye Visual acuity 20/20, ; Right Eye Visual acuity 20/20, ; Without Lenses; iw ED Course: 14:29 Patient arrived in ED. mr 14:29 None, None is Private Physician. mr 14:46 Triage completed. aj1 14:51 Arm band placed on Patient placed in an exam room. aj1 14:53 Tracey Maria FNP-C [facility]. snw 14:53 Jer Kilgore MD is Attending Physician. snw 15:00 Patient has correct armband on for positive identification. iw 15:09 Shahnaz Pelayo, RN is Primary Nurse. iw 15:17 Angela Harp MD is Referral Physician. snw 15:28 No provider procedures requiring assistance completed. Patient did not have IV access iw during this emergency room visit. Administered Medications: 15:16 CANCELLED (Pt using at home): Tetracaine Drops 0.5 % 1 drops Ophthalmic once snw 15:16 CANCELLED (pt UTD): Tetanus-Diphtheria Toxoid Adult 0.5 ml IM once snw 15:23 Drug: ToBREx Drops (0.3 %) 2 drops Route: Ophthalmic; Site: right eye; iw Outcome: 15:17 Discharge ordered by MD. snw 15:28 Discharged to home ambulatory. iw 15:28 Condition: good 15:28 Discharge instructions given to patient, Instructed on discharge instructions, follow up and referral plans. medication usage, Demonstrated understanding of instructions, follow-up care, medications, Prescriptions given X 2. 15:29 Patient left the ED. iw Signatures: Kristi Cardenas RN RN aj1 Tracey Maria FNP-C FNP-Leeanne Natalie Echavarria mr Shahnaz Pelayo, DOT RN iw
[2017-09-20] MEDS ORDERED: TOBRAMYCIN SULF 0.3% OPTH OINT ONE (15:25)
== END 2017-09-20 15:29 | disposition home or self-care (01) ==
LOC: ER 14:23
DX: S05.01XA Injury of conjunctiva and corneal abrasion without foreign body, right eye, initial encounter (principal); Z23 Encounter for immunization; Z88.5 Allergy status to narcotic agent; Z88.8 Allergy status to other drugs, medicaments and biological substances
CPT/HCPCS: 99283

== ENCOUNTER 2018-11-16 01:59 | Emergency (ER) | payer OTHER ==
--- NOTE | 2018-11-16 04:43 | ER ---
Nurse's Notes [facility] Name: Sommer Briones Age: 43 yrs Sex: Female : 1975 Arrival Date: 11/16/2018 Time: 02:02 Bed 19 Private MD: None, None Diagnosis: Fall;Facial contusion;facial abrasion Presentation: 11/16 02:12 Presenting complaint: Patient states: she slipped on the kitchen floor and fell onto aa1 her face 5 days ago and today when her mother came home she found her laying in bed and when she woke her up she was disoriented. Periorbital bruising and swelling noted to shay eyes. Transition of care: patient was not received from another setting of care. Onset of symptoms was November 11, 2018. Risk Assessment: Do you want to hurt yourself or someone else? Patient reports no desire to harm self or others. Initial Sepsis Screen: Does the patient meet any 2 criteria? Altered Mental Status. HR > 90 bpm. Does the patient have a suspected source of infection? No. Patient's initial sepsis screen is negative. Care prior to arrival: None. 02:12 Method Of Arrival: Ambulatory aa1 02:12 Acuity: KIMI 3 aa1 02:12 Mechanism of Injury: Fall from standing position. Trauma event details: Injury occurred cc3 in the [facility], Injury occurred: at home. Injury occurred: November 11, 2018. Triage Assessment: 02:23 General: Appears in no apparent distress. comfortable, Behavior is calm, cooperative, aa1 appropriate for age. 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 aa1 Trauma Activation: Physician: ED Physician; Name: ; Notified At: ; Arrived At: Physician: General Surgeon; Name: ; Notified At: ; Arrived At: Physician: Radiology; Name: ; Notified At: ; Arrived At: Physician: Respiratory; Name: ; Notified At: ; Arrived At: Physician: Lab; Name: ; Notified At: ; Arrived At: 02:12 not activated, injury occurred 5 days ago cc3 Historical: - Allergies: 02:23 Demerol; aa1 02:23 doxycycline monohydrate; aa1 02:23 Morphine; aa1 02:23 Zofran; aa1 - Home Meds: 02:23 baclofen 20 mg Oral tab 1 tab 5 times per day [Active]; Klonopin 1 mg Oral tab 1 tab aa1 four times a d ay [Active]; methocarbamol 750 mg Oral tab 2 tabs twice daily [Active]; nortriptyline 50 mg Oral cap 1 cap 2 times per day [Active]; tramadol 50 mg Oral tab 1 tab every 4 hours [Active]; Soma Oral [Active]; Methocarbamol Oral [Active]; Trintellix oral oral [Active]; Seroquel Oral [Active]; 02:25 Phenergan Oral 25 mg as needed [Active]; prazosin 4mg Oral cap 1 cap at bedtime cc3 [Active]; Zyprexa 15 mg Oral tab 1 tab once daily [Active]; - PMHx: 02:23 Arthritis; neuropathy; Ovarian cysts; Depression; Chronic pain; Migraines; aa1 - PSHx: 02:23 back surgery; aa1 - Immunization history:: Flu vaccine is not up to date. - Social history:: Smoking status: Patient/guardian denies using tobacco. - Immunization history: Last tetanus immunization: unknown. - Ebola Screening: : No symptoms or risks identified at this time. Screenin:12 Abuse screen: Denies threats or abuse. Denies injuries from another. Nutritional cc3 screening: No deficits noted. Tuberculosis screening: No symptoms or risk factors identified. Fall Risk Ambulatory Aid- None/Bed Rest/Nurse Assist (0 pts). Gait- Normal/Bed Rest/Wheelchair (0 pts) Mental Status- Oriented to own ability (0 pts). Primary Survey: 02:12 NO uncontrolled hemorrhage observed. A: The patient is alert. Airway: patent, No cc3 supplemental oxygen in use on arrival. Oral cavity: clear, gag reflex present, Trachea midline. Breathing/Chest: Respiratory pattern: regular, Respiratory effort: spontaneous, unlabored, Breath sounds: clear, bilaterally. Chest inspection: symmetrical rise and fall of the chest. Circulation: Heart tones present. Skin color: pink, Skin temperature: warm, dry. Disability Alert. Exposure/Environment: All clothing and personal items were removed. Forensic evidence collection is not deemed to be indicated at this time. Items placed in patient belonging bag. There is no evidence of uncontrolled external bleeding. Obvious injury(ies) are noted at this time: head injuries noted with hematoma around her eyes A warming method has been applied: A warm blanket has been provided to the patient. 02:15 Reassessment Airway Airway Patent Oxygen No O2 Oral cavity Clear +Gag reflex Trachea cc3 Midline Breathing/Chest Respiratory pattern Regular Respiratory effort Spontaneous Unlabored Breath sounds Clear Chest inspection Symmetrical Circulation Heart tones Present Disability Alert. Secondary Survey: 02:12 HEENT: Head Other redness on the forehead Face Other sore face Eyes: Edema noted left cc3 eye and right eye. Ecchymosis noted right eyebrow, right upper eyelid, right outer canthus, right inner canthus, right lower eyelid, left eyebrow, left upper eyelid, left outer canthus, left inner canthus and left lower eyelid. Ears: clear bilaterally. Nose: clear to bilateral nares. Throat: No injury or deformity noted. is clear with gag reflex present. Gastrointestinal: Abdomen is soft, flat, Bowel sounds present in all quadrants. : No signs and/or symptoms were reported regarding the genitourinary system. Musculoskeletal: Circulation, motion, and sensation intact. Range of motion: intact in all extremities. Injury Description: Head injury. Assessment: 02:12 General: Appears in no apparent distress. uncomfortable, Behavior is calm, cooperative, cc3 appropriate for age. Pain: Complains of pain in around right eye, around left eye Quality of pain is described as aching, Pain began 5 days ago. Neuro: Level of Consciousness is awake, alert, obeys commands, confused, Oriented to person, place, time, Terminal Make Up Operator are equal bilaterally Moves all extremities. Full function Gait is steady, Speech is normal, Facial symmetry appears normal, Intact. Cardiovascular: Denies chest pain, Heart tones S1 S2 present Capillary refill < 3 seconds in bilateral fingers Patient's skin is warm and dry. Respiratory: Airway is patent Trachea midline Respiratory effort is even, unlabored, Respiratory pattern is regular, symmetrical. GI: Abdomen is flat, Bowel sounds present X 4 quads. : No signs and/or symptoms were reported regarding the genitourinary system. EENT: swelling and hematoma around bilateral eyes. Derm: Skin is intact, is healthy with good turgor, Skin is pink, warm \T\ dry. normal, Bruising that is dark purple, on left lower eyelid and left inner canthus and left outer canthus and left upper eyelid and left eyebrow and right lower eyelid and right inner canthus and right outer canthus and right upper eyelid and right eyebrow and left eye and right eye. Musculoskeletal: Circulation, motion, and sensation intact. Range of motion: intact in all extremities. Injury Description: Head injury fall from standing 5 days ago. 03:00 Reassessment: Patient appears in no apparent distress at this time. Patient and/or cc3 family updated on plan of care and expected duration. Pain level reassessed. Patient is alert, oriented x 3, equal unlabored respirations, skin warm/dry/pink. Patient taken by veterinary laboratory technician to their department by wheelchair. 03:35 Reassessment: Patient came back from CT scan department, awaiting result. cc3 04:30 Reassessment: Patient appears in no apparent distress at this time. Patient and/or cc3 family updated on plan of care and expected duration. Pain level reassessed. Patient is alert, oriented x 3, equal unlabored respirations, skin warm/dry/pink. Vital Signs: 02:23 BP 141 / 85; Pulse 94; Resp 18; Temp 98.1; Pulse Ox 100% on R/A; Weight 77.11 kg; aa1 Height 5 ft. 11 in. (180.34 cm); Pain 9/10; 03:32 BP 128 / 74; Pulse 53; Resp 17 S; Pulse Ox 100% on R/A; cc3 04:30 BP 127 / 89; Pulse 89; Resp 17 S; Pulse Ox 100% on R/A; cc3 02:23 Body Mass Index 23.71 (77.11 kg, 180.34 cm) aa1 Inocencio Coma Score: 02:12 Eye Response: spontaneous(4). Verbal Response: confused(4). Motor Response: obeys cc3 commands(6). Total: 14. Trauma Score (Adult): 02:12 Eye Response: spontaneous(1); Verbal Response: confused(1); Motor Response: obeys cc3 commands(2); Systolic BP: > 89 mm Hg(4); Respiratory Rate: 10 to 29 per min(4); [place] Score: 14; Trauma Score: 12 ED Course: 02:02 Patient arrived in ED. mr 02:02 None, None is Private Physician. mr 02:12 Stephanie Umanzor is Primary Nurse. cc3 02:12 Patient has correct armband on for positive identification. Placed in gown. Bed in low cc3 position. Call light in reach. Side rails up X2. Adult w/ patient. Pulse ox on. NIBP on. 02:12 Patient maintains SpO2 saturation greater than 95% on room air. Thermoregulation: warm cc3 blanket given to patient. 02:19 Triage completed. aa1 02:23 Arm band placed on right wrist. Patient placed in an exam room, on a stretcher. aa1 02:24 Mayo Dominguez MD is Attending Physician. ps1 03:25 CT Head Brain wo Cont In Process Unspecified. EDMS 03:26 CT Maxillofacial W/cont In Process Unspecified. EDMS 04:30 Report given to DOT Campbell. cc3 05:08 No provider procedures requiring assistance completed. Patient did not have IV access lp1 during this emergency room visit. Administered Medications: No medications were administered Outcome: 04:41 Discharge ordered by . ps1 05:08 Discharged to home ambulatory, with family. lp1 05:08 Condition: good 05:08 Discharge instructions given to patient, family, Instructed on discharge instructions, follow up and referral plans. Demonstrated understanding of instructions, follow-up care. 05:09 Patient's length of stay in the Emergency Department was greater than [address] lp[address] results Patient's length of stay extended due to 05:10 Patient left the ED. lp1 Signatures: Dispatcher [employer] [facility] Ghada Bennett RN RN aa1 Meliza Echavarria Laura, RN RN lp1 Mayo Dominguez MD MD ps1 Cordel, Charlene cc3
--- NOTE | 2018-11-16 04:43 | EDPHYS ---
Physician Documentation [facility] Name: Sommer Briones Age: 43 yrs Sex: Female : 1975 Arrival Date: 11/16/2018 Time: 02:02 Bed 19 Private MD: None, None ED Physician Mayo Dominguez HPI: 11/16 03:16 This 43 yrs old Female presents to ER via Ambulatory with complaints of Fall ps1 Injury, Head Injury With LOC-Adult. 03:16 Patient fell coming into house after returning from OOT visit to [place] 4 days ago. ps1 Patient states she tripped and fell. Unknown LOC. Patient reportedly was found by mother tonight in bed and nightstand was out of place. Now has new injury. Mother states that child is on multiple medications that make her unstable. Soma, benzo, robaxin, baclofen etc for spasm. . 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/2018 aa1 Historical: - Allergies: 02:23 Demerol; aa1 02:23 doxycycline monohydrate; aa1 02:23 Morphine; aa1 02:23 Zofran; aa1 - Home Meds: 02:23 baclofen 20 mg Oral tab 1 tab 5 times per day [Active]; Klonopin 1 mg Oral tab 1 tab aa1 four times a d ay [Active]; methocarbamol 750 mg Oral tab 2 tabs twice daily [Active]; nortriptyline 50 mg Oral cap 1 cap 2 times per day [Active]; tramadol 50 mg Oral tab 1 tab every 4 hours [Active]; Soma Oral [Active]; Methocarbamol Oral [Active]; Trintellix oral oral [Active]; Seroquel Oral [Active]; 02:25 Phenergan Oral 25 mg as needed [Active]; prazosin 4mg Oral cap 1 cap at bedtime cc3 [Active]; Zyprexa 15 mg Oral tab 1 tab once daily [Active]; - PMHx: 02:23 Arthritis; neuropathy; Ovarian cysts; Depression; Chronic pain; Migraines; aa1 - PSHx: 02:23 back surgery; aa1 - Immunization history:: Flu vaccine is not up to date. - Social history:: Smoking status: Patient/guardian denies using tobacco. - Immunization history: Last tetanus immunization: unknown. - Ebola Screening: : No symptoms or risks identified at this time. ROS: 03:16 Constitutional: Negative for fever, chills, and weight loss, Cardiovascular: Negative ps1 for chest pain, palpitations, and edema, Respiratory: Negative for shortness of breath, cough, wheezing, and pleuritic chest pain, Abdomen/GI: Negative for abdominal pain, nausea, vomiting, diarrhea, and constipation, MS/Extremity: Negative for injury and deformity, Skin: Negative for injury, rash, and discoloration, Neuro: Negative for headache, weakness, numbness, tingling, and seizure. 03:16 Eyes: Positive for redness, swelling, of the right eye and left eye. Exam: 03:16 Constitutional: This is a well developed, well nourished patient who is awake, alert, ps1 and in no acute distress. ENT: Nares patent. No nasal discharge, no septal abnormalities noted. Tympanic membranes are normal and external auditory canals are clear. Oropharynx with no redness, swelling, or masses, exudates, or evidence of obstruction, uvula midline. Mucous membranes moist. Chest/axilla: Normal chest wall appearance and motion. Nontender with no deformity. No lesions are appreciated. Cardiovascular: Regular rate and rhythm. No gallops, murmurs, or rubs. Normal PMI, no JVD. No pulse deficits. Respiratory: Lungs have equal breath sounds bilaterally, clear to auscultation and percussion. No rales, rhonchi or wheezes noted. No increased work of breathing, no retractions or nasal flaring. Abdomen/GI: Soft, non-tender, with normal bowel sounds. No distension or tympany. No guarding or rebound. No evidence of tenderness throughout. MS/ Extremity: Pulses equal, no cyanosis. Neurovascular intact. Full, normal range of motion. Neuro: Awake and alert, GCS 15, oriented to person, place, time, and situation. Cranial nerves II-XII grossly intact. Sensory grossly intact. Psych: Awake, alert, with orientation to person, place and time. Behavior, mood, and affect are within normal limits. 03:16 Head/face: Noted is contusion, ecchymosis, that is moderate, of the right eye and left eye, erythema, hematoma. 03:16 Eyes: Periorbital structures: erythema, swelling, contusion, Pupils: equal, round, and reactive to light and accomodation, Extraocular movements: intact throughout. Vital Signs: 02:23 BP 141 / 85; Pulse 94; Resp 18; Temp 98.1; Pulse Ox 100% on R/A; Weight 77.11 kg; aa1 Height 5 ft. 11 in. (180.34 cm); Pain 9/10; 03:32 BP 128 / 74; Pulse 53; Resp 17 S; Pulse Ox 100% on R/A; cc3 04:30 BP 127 / 89; Pulse 89; Resp 17 S; Pulse Ox 100% on R/A; cc3 02:23 Body Mass Index 23.71 (77.11 kg, 180.34 cm) aa1 Inocencio Coma Score: 02:12 Eye Response: spontaneous(4). Verbal Response: confused(4). Motor Response: obeys cc3 commands(6). Total: 14. Trauma Score (Adult): 02:12 Eye Response: spontaneous(1); Verbal Response: confused(1); Motor Response: obeys cc3 commands(2); Systolic BP: > 89 mm Hg(4); Respiratory Rate: 10 to 29 per min(4); Inocencio Score: 14; Trauma Score: 12 MDM: 02:56 Patient medically screened. ps1 03:54 Data reviewed: vital signs, nurses notes, radiologic studies, and as a result, I will ps1 discharge patient. Counseling: I had a detailed discussion with the patient and/or guardian regarding: the historical points, exam findings, and any diagnostic results supporting the discharge/admit diagnosis, radiology results, the need for outpatient follow up, to return to the emergency department if symptoms worsen or persist or if there are any questions or concerns that arise at home. 11/16 02:26 Order name: CT Head Brain wo Cont ps1 11/16 02:26 Order name: CT Maxillofacial W/cont ps1 Administered Medications: No medications were administered Disposition: 11/16/18 04:41 Discharged to Home. Impression: Fall, Facial contusion, facial abrasion. - Condition is Stable. - Discharge Instructions: Concussion, Adult, Facial or Scalp Contusion. - Medication Reconciliation Form, Thank You Letter, Antibiotic Education, Prescription Opioid Use form. - Follow up: Private Physician; When: 48 Hours; Reason: Further diagnostic work-up, Recheck today's complaints, Continuance of care, Re-evaluation by your physician. Follow up: Emergency Department; When: As needed; Reason: Worsening of condition. - Problem is new. - Symptoms are unchanged. Signatures: Dispatcher [employer] EDMS Ghada Bennett RN RN aa1 Shannan Anderson RN RN lp1 Mayo Dominguez MD MD ps1 Stephanie Umanzor cc3 Corrections: (The following items were deleted from the chart) 05:10 04:41 11/16/2018 04:41 Discharged to Home. Impression: Fall; Facial contusion; facial lp1 abrasion. Condition is Stable. Forms are Medication Reconciliation Form, Thank You Letter, Antibiotic Education, Prescription Opioid Use. Follow up: Private Physician; When: 48 Hours; Reason: Further diagnostic work-up, Recheck today's complaints, Continuance of care, Re-evaluation by your physician. Follow up: Emergency Department; When: As needed; Reason: Worsening of condition. Problem is new. Symptoms are unchanged. ps1
[2018-11-16 05:34] VITALS: TEMP 98.1; O2SAT 100
[2018-11-16 05:36] VITALS: BP 127/89
--- NOTE | 2018-11-17 17:28 | RAD REPORT ---
EXAM DESCRIPTION: CT Head Without Intravenous Contrast CLINICAL HISTORY: The patient is 43 years old and is Female; fall TECHNIQUE: Axial computed tomography images of the head/brain without intravenous contrast. Sagitt al and coronal reformatted images were created and reviewed. This CT exam was performed using one o r more of the following dose reduction techniques: automated exposure control, adjustment of the mA and/or kV according to patient size, and/or use of iterative reconstruction technique. COMPARISON: No relevant prior studies available. FINDINGS: BRAIN: Unremarkable. The ling-white matter differentiation is preserved . No hemorrhag e. No significant white matter disease. No edema. No extra-axial fluid collections. VENTRICLES: Unremarkable. No ventriculomegaly. BONES/JOINTS: No acute fracture. SOFT TISSUES: Midline frontal scalp hematoma is present. SINUSES: Unremarkable as visualized. No acute sinusitis. MASTOID AIR CELLS: Unremarkable as visualized. No mastoid effusion. ORBITS: Unremarkable as visualized. IMPRESSION: No acute findings in the head/brain. Electronically signed by: Ami Camilo MD 11/16/2018 3:31 AM CDT Due to temporary technical issues with the PACS/Fluency reporting system, reports are being signed by the in house radiologist as a courtesy to ensure prompt reporting. The interpreting radiologist is f ully responsible for the content of the report.
--- NOTE | 2018-11-17 17:28 | RAD REPORT ---
EXAM DESCRIPTION: CT Maxillofacial With Intravenous Contrast CLINICAL HISTORY: The patient is 43 years old and is Female; facial trauma TECHNIQUE: Axial computed tomography images of the face with intravenous contrast. Sagittal and co javier reformatted images were created and reviewed. This CT exam was performed using one or more of the following dose reduction techniques: automated exposure control, adjustment of the mA and/or k V according to patient size, and/or use of iterative reconstruction technique. COMPARISON: No relevant prior studies available. FINDINGS: BONES/JOINTS: The orbital floors and gomez are intact. The zygomatic arches and pteryg oid plates are intact. The visualized maxilla and mandible are intact. SOFT TISSUES: Midline frontal scalp soft tissue swelling is present. ORBITS: The globes, extraocular muscles, and optic nerve complexes are within normal limits. SINUSES: The visualized paranasal sinuses are clear. No air-fluid levels. NASAL CAVITY/SEPTUM: The nasal bones are intact. IMPRESSION: No acute findings in the face. Electronically signed by: Ami Camilo MD 11/16/2018 3:30 AM CDT Due to temporary technical issues with the PACS/Fluency reporting system, reports are being signed by the in house radiologist as a courtesy to ensure prompt reporting. The interpreting radiologist is f ully responsible for the content of the report.
== END 2018-11-16 05:10 | disposition home or self-care (01) ==
LOC: ER 01:59
DX: S00.83XA Contusion of other part of head, initial encounter (principal); S00.81XA Abrasion of other part of head, initial encounter; W01.0XXA Fall on same level from slipping, tripping and stumbling without subsequent striking against object, initial encounter; Y93.9 Activity, unspecified; Y92.9 Unspecified place or not applicable; Z88.6 Allergy status to analgesic agent; Z88.3 Allergy status to other anti-infective agents; F32.9 Major depressive disorder, single episode, unspecified; G89.29 Other chronic pain
CPT/HCPCS: 70450; 70487; 99284

== ENCOUNTER 2020-09-26 06:27 | Day surgery (SDC) | payer OTHER ==
[2020-09-26 07:04] LABS: Absolute Lymphocytes (CBC) 1.6 K/uL (0.7-4.9); Hematocrit 39.2 % (36.0-45.0); Lymphocytes % 28.7 % (15.3-44.8); MPV 8.8 fL (7.6-11.3)
[2020-09-26 07:12] LABS: Potassium 3.8 mmol/L (3.5-5.1)
[2020-09-26] MEDS ORDERED: BUPIVACAINE 0.5% PF 10 ML VIAL ONE (07:14)
[2020-09-26] MEDS ORDERED: Ringers Lactate 1,000 ML IV ONE (07:32)
[2020-09-26] MEDS ORDERED: CEFAZOLIN/SWI 1gm 1 GM/10 ML SYR ONE (07:32)
[2020-09-26] MEDS ORDERED: MIDAZOLAM HCL 2 MG/2 ML INJ ONE (07:43)
[2020-09-26] MEDS ORDERED: propofoL 200 MG/20 ML VIAL IV ONE (07:43)
[2020-09-26] MEDS ORDERED: LIDOCAINE 1% MPF 5 ML VIAL ONE (07:43)
[2020-09-26] MEDS ORDERED: FENTANYL CITR 100 MCG/2 ML ONE (07:43)
--- NOTE | 2020-09-26 07:56 | EKG ---
Test Date: 2020-09-26 Test Time: 06:21:47 Mat Tester: MILES MEASUREMENT RESULTS: Intervals: Rate: 68 CA: 190 QRSD: 112 QT: 416 QTc: 442 [place]: P: 47 CA: 190 QRS: 83 T: 67 INTERPRETIVE STATEMENTS: Normal sinus rhythm Normal ECG Compared to ECG 03/25/2003 13:42:00 Right-axis deviation no longer present Incomplete right bundle-branch block no longer present Electronically Signed On 09-26-20 07:55:53 CDT by Marcus Ho
[2020-09-26] MEDS ORDERED: dexAMETHasone 10 MG/ML VIAL ONE (08:15)
[2020-09-26] MEDS ORDERED: KETOROLAC 30 MG/ML INJ ONE (08:16)
--- NOTE | 2020-09-26 08:22 | P.BOP ---
Preoperative diagnosis: PErianal abscess, left buttock cellulitis Postoperative diagnosis: same Primary procedure: EUA, anoscopy, rigid proctoscopy, I&D perianal abscess Estimated blood loss: <10cc Specimen: pus Findings: perianal absces Anesthesia: General Complications: None Drain(s): Other Transferred to: Recovery Room Condition: Good
--- NOTE | 2020-09-26 08:27 | RAD REPORT ---
EXAM DESCRIPTION: RAD - Chest Pa And Lat (2 Views) - 09/26/2020 8:01 am CLINICAL HISTORY: PREOP, STAT, SAME DAY SURGERY, BED 7, soft tissue abscess drainage COMPARISON: None TECHNIQUE: Frontal and lateral views of the chest were obtained. FINDINGS: The lungs are clear. Heart size is normal and central vasculature is within normal limit s. No pleural effusion or pneumothorax seen. No acute bony finding noted. No aortic abnormality. IMPRESSION: No acute cardiopulmonary process.
[2020-09-26] MEDS: MORPHINE 4 MG/ML SYR ONE ×2 (08:33→08:38)
[2020-09-26] MEDS: HYDROMORPHONE HCL 1 MG/ML INJ ONE ×4 (08:40→08:55)
[2020-09-26] MEDS ORDERED: PROMETHAZINE INJ 25 MG/ML AMP ONE ×2 (09:09→09:27)
[2020-09-26 09:36] VITALS: TEMP 97; O2SAT 97
[2020-09-26] MEDS ORDERED: TRAMADOL 37.5mg/APAP 325mg PER TAB ONE (10:05)
--- NOTE | 2020-09-26 11:40 | OP ---
Date of Procedure: 09/26/2020 Surgeon: Hira Zapata MD Preoperative Diagnoses: Perianal abscess, left buttock cellulitis. Postoperative Diagnoses: Perianal abscess, left buttock cellulitis. Procedures: Examination under anesthesia, rigid proctoscopy, anoscopy, incision and drainage of flory anal abscess. Anesthesia: General plus local. Estimated Blood Loss: Less than 10 mL. Complications: None. Indication: This is the case of a 45-year-old patient, who comes to us with perianal pain extending to the left buttock with cellulitis, some fluctuance and induration. Benefits, alternatives, and ris ks of EUA, anoscopy, proctoscopy, possible I and D of perianal abscess were fully explained, which in clude, but not limited to infection, bleeding, damage to adjacent structures, anesthesia complication , recurrence, PR, and even . She also understands this may not relieve any symptoms. She might need more than one surgical intervention. She signed a consent. Procedure In Detail: The patient was brought to the operating room, placed in supine position. Anes thesia was done without complication. The patient was placed in lithotomy position with proper prote ction. A time-out was called. The perianal area was prepped and draped in the usual sterile fashion . Previously, we noticed the area of the induration. I marked this with the patient in the holding room. We did a rigid proctoscopy all the way to about 10 cm. We cannot advance anymore due to large amount of stool present. We did not see any mass in that region. We saw internal and external hemo rrhoids. Then, after that, I placed an anoscope with a window on the side to allow me to check the a nal canal with the findings consistent of a perianal abscess that tracked into the left buttock with the area of the markings. At that moment, I proceeded to make an incision in the left buttock region around the perianal region and then abscess was found tracking into the perianal area, does not go i nto the rectal region. The loculations were explored open. The area was irrigated and then the area was cultured and packed with a dry dressing after local anesthetic and after a hemostasis was obtain ed. The patient tolerated the procedure well. The area was packed with quarter of an inch Nu Gauze. The patient was sent to recovery in stable condition. HM/BROCK Voice ID: [id number] Report ID: [id number]
--- NOTE | 2020-09-26 11:41 | DS ---
Diagnosis: Left buttock cellulitis with perianal abscess. Procedures: EUA, anoscopy, proctoscopy, I and D of perianal abscess. Disposition: Home. Activity: As tolerated. No heavy lifting. Plan: Follow up in my office in 1 week. Call for appointment at [phone]. Wet-to-dry dressing [facility] with gauze or Nu Gauze daily. We will see the patient in a week from now. TED/BROCK Voice ID: [id number] Report ID: [id number]
[2020-09-26 14:58] VITALS: BP 99/62
== END 2020-09-26 10:27 | disposition home or self-care (01) ==
LOC: PRE 06:27
PROVIDERS: ATTEND Surgery
PROC: 0D9Q8ZX Drainage of Anus, Via Natural or Artificial Opening Endoscopic, Diagnostic (ICD-10-PCS; 2020-09-26)
PROC: 0DJD8ZZ Inspection of Lower Intestinal Tract, Via Natural or Artificial Opening Endoscopic (ICD-10-PCS; principal; 2020-09-26 07:30)
DX: L72.0 Epidermal cyst (principal); L03.317 Cellulitis of buttock; Z20.822 Contact with and (suspected) exposure to COVID-19; M06.9 Rheumatoid arthritis, unspecified; F41.8 Other specified anxiety disorders
CPT/HCPCS: 93005; 87070; 85025; 80048; 36415; 87205 ×2; 81025; 88304; 87075; 71046; 45300; 46050; U0003; J2704; J2550 ×2; J2250; J3010; J1100; J1170 ×2; J0690; J7120

== ENCOUNTER 2022-07-10 12:35 | Day surgery (SDC) | payer OTHER ==
[2022-07-10] MEDS ORDERED: FENTANYL CITR 100 MCG/2 ML ONE (12:50)
[2022-07-10] MEDS ORDERED: ROCURONIUM 50 MG/5 ML VIAL IV ONE (12:50)
[2022-07-10] MEDS ORDERED: LIDOCAINE 2% MPF 5 ML VIAL ONE (12:50)
[2022-07-10] MEDS ORDERED: MIDAZOLAM HCL 2 MG/2 ML INJ ONE (12:50)
[2022-07-10] MEDS ORDERED: propofoL 200 MG/20 ML VIAL IV ONE (12:50)
[2022-07-10] MEDS ORDERED: METHYLENE BLUE 0.5% 10 ML AMP ONE (12:55)
[2022-07-10] MEDS ORDERED: SCOPOLAMINE HYDROBROMIDE PATCH TD ONE (13:09)
[2022-07-10] MEDS: Ringers Lactate 1,000 ML IV ONE ×2 (13:10→13:25)
[2022-07-10 13:15] LABS: Absolute Lymphocytes (CBC) 1.1 K/uL (0.7-4.9); Hematocrit 39.4 % (36.0-45.0); Lymphocytes % 25.4 % (15.3-44.8); MPV 9.6 fL (7.6-11.3); RBC Red Blood Cell Count 4.11 M/uL (3.86-4.86)
[2022-07-10] MEDS: CEFAZOLIN SODIUM 1 GM/VIAL ONE ×2 (13:23→13:37)
[2022-07-10 13:26] LABS: Potassium 3.9 mEq/L (3.5-5.1)
[2022-07-10] MEDS ORDERED: LIDOCAINE HCL/EPINEPHRINE 20 ML MDV ONE (13:32)
--- NOTE | 2022-07-10 13:37 | EKG ---
Test Date: 2022-07-10 Test Time: 12:51:22 Parcel Carrier: TANA MEASUREMENT RESULTS: Intervals: Rate: 63 ND: 196 QRSD: 100 QT: 404 QTc: 413 [place]: P: 42 ND: 196 QRS: 62 T: 68 INTERPRETIVE STATEMENTS: Normal sinus rhythm Possible Left atrial enlargement Low voltage QRS Borderline ECG Compared to ECG 09/26/2020 06:21:47 Low QRS voltage now present Electronically Signed On 07-10-22 13:36:56 CDT by Alexis Lockhart
[2022-07-10 13:49] LABS: Urine Specific Gravity/Preg 1.025 (1.005-1.030)
[2022-07-10] MEDS ORDERED: METOCLOPRAMIDE 10 MG/2mL INJ ONE (14:01)
[2022-07-10] MEDS ORDERED: dexAMETHasone 10 MG/ML VIAL ONE (14:01)
[2022-07-10] MEDS ORDERED: GLYCOPYRROLATE 0.2 MG/ML SYR ONE (14:20)
[2022-07-10] MEDS: HYDROMORPHONE HCL 1 MG/ML INJ ONE ×7 (14:41→15:06)
--- NOTE | 2022-07-10 15:05 | P.BOP ---
Preoperative diagnosis: infected pilonidal cyst Postoperative diagnosis: same Primary procedure: Wide excision of infected pilonidal cyst 6 x 4 x 2 cm Estimated blood loss: <20cc Specimen: cyst, culture Findings: as above Anesthesia: General Complications: None Drain(s): Other (wet to dry NS) Transferred to: Recovery Room Condition: Good
[2022-07-10 16:06] VITALS: BP 113/60; TEMP 97; O2SAT 95
== END 2022-07-10 16:30 | disposition home or self-care (01) ==
LOC: OR 12:35
PROVIDERS: ATTEND Surgery
PROC: 0JB90ZZ Excision of Buttock Subcutaneous Tissue and Fascia, Open Approach (ICD-10-PCS; principal; 2022-07-10 15:00)
DX: L05.91 Pilonidal cyst without abscess (principal); M54.9 Dorsalgia, unspecified; F41.9 Anxiety disorder, unspecified; F17.290 Nicotine dependence, other tobacco product, uncomplicated
CPT/HCPCS: 93005; 87070; 85025; 80048; 36415; 87205 ×2; 81025; 87075; 11770; J2704; J2765; J2001; J2250; J3010; J1100; J1170 ×3; J7120; J0690; 88304